=== PATIENT | male | born 1955 | race Caucasian/White ===

== ENCOUNTER 2023-11-18 22:19 | Inpatient (IN) ==
--- NOTE | 2023-11-18 23:44 | Emergency Department Note ---
History of Present Illness General Chief complaint: Infection Stated complaint: INFECTION IN LT EAR/DOWN SIDE OF LT THROAT Time Seen by Provider: 11/18/23 23:29 Source: patient, family ( was at the bedside), RN notes reviewed and old records reviewed (Outpatient labs from from -) Mode of arrival: ambulatory History of Present Illness Maximum Pain Intensity: 5 This patient is a 68-year-old male who comes in with several complaints. When asked what was wrong he says "everything. He was seen Friday for kidney problems he said it was not bad enough to get him admitted he then got an infection of his left external ear he was put on Keflex but is not helping he continues to have pain and swelling there no discharge. No trauma. He is temperature was up to 102.9 axillary this evening. No cough or runny nose he said since he started the Keflex he had a little diarrhea and abdominal discomfort but no severe pain no blood in his stool. He has had some nausea. Decreased appetite he does not believe he is allergic to penicillins Home Medications Medication Instructions Recorded Confirmed Type apixaban 5 mg tablet (Eliquis) 5 mg PO BID 07/21/23 11/19/23 History potassium chloride 10 mEq 10 meq PO DAILY #90 caps 07/30/23 11/19/23 Rx capsule,extended release lisinopril 20 mg tablet 20 mg PO DAILY #90 tabs 08/13/23 11/19/23 Rx diltiazem HCl 180 mg 180 mg PO DAILY #90 caps 10/02/23 11/19/23 Rx capsule,extended release 24 hr cephalexin 500 mg capsule 500 mg PO TID #21 caps 11/17/23 11/19/23 Rx empagliflozin 10 mg tablet 10 mg PO DAILY #30 tabs 11/17/23 11/19/23 Rx (Jardiance) paroxetine HCl 30 mg tablet 30 mg PO DAILY #30 tabs 11/17/23 11/19/23 Rx furosemide 40 mg tablet 40 mg PO DAILY edema 11/19/23 11/19/23 History Allergies Allergy/AdvReac Type Severity Reaction Status Date / Time rosuvastatin [From Crestor] Allergy Intermediate Hives Verified 11/19/23 01:16 Beta-Blockers AdvReac Intermediate Confusion/A Verified 11/19/23 01:16 (Beta-Adrenergic Bloc GITATION ? ABX Allergy Unknown HAPPENED Uncoded 11/19/23 01:16 34 YEARS AGO Past Med/Surg History Problem List (Updated 11/19/23 @ 02:25 by Manoj Partida MD) Elevated troponin I level (Acute) Sepsis (Acute) Current use of manager intermediate anticoagulation (Acute) Otitis externa (Acute) Acute kidney injury (Acute) Anxiety and depression Hypertension Type 2 diabetes mellitus (Acute) Afib (Acute) CAD (coronary artery disease) Medical History History of congestive heart disease IDT (imperfectly descended testis) Surgical History S/P cataract surgery Stented coronary artery 2x Family History Mother Diabetes Heart disease Myocardial infarction Grandfather (Maternal) Diabetes Grandfather (Paternal) Colon cancer Suicide Denies family history of Ovarian cancer Prostate cancer Breast cancer Colorectal cancer Social History Smoking Status: Never smoker Tobacco Type: Cigarettes Age Started Using Tobacco: 17; Age Quit Using Tobacco: 19; Second Hand Exposure: No; Do You Dip or Chew Tobacco: No; Hx Alcohol Use: No Hx Substance Use: No Preferred Language: Gibralt[place] Communication Ability: Effective Visual Impairment: No Limitations Hearing Ability: Normal Transportation Aid Required: No marital status: Current Living Situation: Spouse current occupational status: retired Feels Safe at Home: Yes Childhood Exposure to Second-Hand Smoke: No Diet: regular caffeine: Yes during the past year weight has: decreased > 10 lbs Dental Care, Regularly: No Physical Activity Frequency: Does not Exercise Seatbelt Use: never Sunscreen Use: No Assistive Devices: Glasses Review of Systems A total of 10 systems reviewed and were otherwise negative Physical Exam Vital Signs Vital Signs - 24 hr 11/18/23 22:21 11/18/23 22:42 11/18/23 22:45 Temperature 37.4 C Temperature Source Oral Pulse Rate 109 H 92 H 94 H Pulse Rate from SpO2 Sensor Pulse Rhythm Respiratory Rate 18 31 H Respiratory Effort / Characteristics Non-Labored Spontaneous Respiratory Depth Normal Blood Pressure 163/88 H 157/76 H Blood Pressure Mean 113 103 Pulse Oximetry 96 92 Oxygen Delivery Method Room Air Room Air Sepsis Recent Fever Within 48 Hours Yes Sepsis New/Unexplained Change in Mental Status No Sepsis Action Taken by Nursing No Action Required 11/18/23 22:48 11/18/23 22:48 11/18/23 22:49 Temperature Temperature Source Pulse Rate 98 H Pulse Rate from SpO2 Sensor Pulse Rhythm Respiratory Rate 21 Respiratory Effort / Characteristics Respiratory Depth Blood Pressure 159/82 H 159/82 H 159/82 H Blood Pressure Mean 110 110 107 Pulse Oximetry 97 Oxygen Delivery Method Sepsis Recent Fever Within 48 Hours Sepsis New/Unexplained Change in Mental Status Sepsis Action Taken by Nursing 11/18/23 22:51 11/18/23 23:06 11/18/23 23:15 Temperature Temperature Source Pulse Rate 92 H 89 Pulse Rate from SpO2 Sensor 94 H 93 H Pulse Rhythm Respiratory Rate 26 H Respiratory Effort / Characteristics Respiratory Depth Blood Pressure 164/91 H Blood Pressure Mean 99 Pulse Oximetry 95 92 Oxygen Delivery Method Sepsis Recent Fever Within 48 Hours Sepsis New/Unexplained Change in Mental Status Sepsis Action Taken by Nursing 11/18/23 23:15 11/18/23 23:15 11/18/23 23:30 Temperature Temperature Source Pulse Rate 88 Pulse Rate from SpO2 Sensor 93 H Pulse Rhythm Respiratory Rate 34 H Respiratory Effort / Characteristics Respiratory Depth Blood Pressure 164/91 H 143/79 H Blood Pressure Mean 99 102 Pulse Oximetry 93 Oxygen Delivery Method Sepsis Recent Fever Within 48 Hours Sepsis New/Unexplained Change in Mental Status Sepsis Action Taken by Nursing 11/18/23 23:30 11/18/23 23:30 11/18/23 23:30 Temperature Temperature Source Pulse Rate Pulse Rate from SpO2 Sensor Pulse Rhythm Respiratory Rate Respiratory Effort / Characteristics Respiratory Depth Blood Pressure 143/79 H 143/79 H 143/79 H Blood Pressure Mean 102 102 102 Pulse Oximetry Oxygen Delivery Method Sepsis Recent Fever Within 48 Hours Sepsis New/Unexplained Change in Mental Status Sepsis Action Taken by Nursing 11/18/23 23:33 11/19/23 00:00 11/19/23 00:12 Temperature Temperature Source Pulse Rate 93 H 92 H 90 Pulse Rate from SpO2 Sensor 95 H 91 H 88 Pulse Rhythm Respiratory Rate 33 H 35 H 29 H Respiratory Effort / Characteristics Respiratory Depth Blood Pressure Blood Pressure Mean Pulse Oximetry 96 94 96 Oxygen Delivery Method Sepsis Recent Fever Within 48 Hours Sepsis New/Unexplained Change in Mental Status Sepsis Action Taken by Nursing 11/19/23 00:17 11/19/23 00:17 11/19/23 00:30 Temperature Temperature Source Pulse Rate Pulse Rate from SpO2 Sensor Pulse Rhythm Respiratory Rate Respiratory Effort / Characteristics Respiratory Depth Blood Pressure 149/78 H 149/78 H 140/71 Blood Pressure Mean 111 111 99 Pulse Oximetry Oxygen Delivery Method Sepsis Recent Fever Within 48 Hours Sepsis New/Unexplained Change in Mental Status Sepsis Action Taken by Nursing 11/19/23 00:39 11/19/23 00:42 11/19/23 00:42 Temperature Temperature Source Pulse Rate 96 H 84 83 Pulse Rate from SpO2 Sensor 95 H 85 Pulse Rhythm Regular Respiratory Rate 32 H 34 H 34 H Respiratory Effort / Characteristics Respiratory Depth Blood Pressure Blood Pressure Mean Pulse Oximetry 95 95 94 Oxygen Delivery Method Room Air Sepsis Recent Fever Within 48 Hours Sepsis New/Unexplained Change in Mental Status Sepsis Action Taken by Nursing 11/19/23 00:45 11/19/23 00:54 11/19/23 01:00 Temperature Temperature Source Pulse Rate 82 Pulse Rate from SpO2 Sensor 87 Pulse Rhythm Respiratory Rate 34 H Respiratory Effort / Characteristics Respiratory Depth Blood Pressure 158/73 H 151/77 H Blood Pressure Mean 100 99 Pulse Oximetry 94 Oxygen Delivery Method Sepsis Recent Fever Within 48 Hours Sepsis New/Unexplained Change in Mental Status Sepsis Action Taken by Nursing 11/19/23 01:00 11/19/23 01:00 11/19/23 01:00 Temperature Temperature Source Pulse Rate 84 Pulse Rate from SpO2 Sensor 85 Pulse Rhythm Respiratory Rate 23 Respiratory Effort / Characteristics Respiratory Depth Blood Pressure 151/77 H 151/77 H Blood Pressure Mean 99 99 Pulse Oximetry 95 Oxygen Delivery Method Sepsis Recent Fever Within 48 Hours Sepsis New/Unexplained Change in Mental Status Sepsis Action Taken by Nursing General: Well developed well nourished older male who appears in no acute distress, breathing comfortably on room air. Normal speech HEENT: Normal cephalic atraumatic. Pupils are equal round and reactive to light. Extraocular movements are intact. Oropharynx is pink with moist mucous membranes. No swelling of the mouth lips or tongue. His left pinna is markedly swollen and red is not particularly warm is no fluctuance there is no pus in the canal. Neck: Supple with a midline trachea. No meningeal signs or stiffness, no JVD or bruits. No Stridor. Chest: Clear to auscultation bilaterally. No wheezes or rhonchi. No increased work of breathing. Heart: Regular rate and rhythm without murmurs or gallops. Abdomen: Soft nontender, nondistended without rebound guarding or rigidity. Extremities: No cyanosis clubbing or edema. No calf tenderness or assymetry Spine/Back. Non tender to palpation. No CVA tenderness Skin: Good turgor without rashes. Neurologic exam: Cranial nerves two through 12 are intact. Motor and sensation are intact and symmetrical throughout. Course Administered Medications Daptomycin 350 mg/ Syringe 7 mls @ 3.5 mls/min IV Q24H BLAKE; Protocol Stop: 11/29/23 01:59 Last Admin: 11/19/23 02:16 Dose: 3.5 mls/min Documented By: ROSAMARIA Nitroglycerin (Nitroglycerin 2% Ointment 30gm Tube) 1 inch EXT Q6H BLAKE Stop: 12/19/23 01:59 Last Admin: 11/19/23 02:15 Dose: 1 inch Documented By: ROSAMARIA Discontinued Medications Apixaban (Apixaban 5 Mg Tablet) 5 mg PO NOW STA Stop: 11/19/23 01:34 Last Admin: 11/19/23 02:15 Dose: 5 mg Documented By: ROSAMARIA Aspirin (Aspirin 81 Mg Ectab) 81 mg PO NOW STA Stop: 11/19/23 01:51 Last Admin: 11/19/23 02:15 Dose: 81 mg Documented By: ROSAMARIA Sodium Chloride (Nss) 1,000 mls @ 999 mls/hr IV .Q1H1M BLAKE Stop: 11/19/23 00:45 Last Infusion: 11/19/23 01:58 Dose: Infused Documented By: Admin: 11/19/23 00:16 Dose: 999 mls/hr Documented By: MAYNOR Piperacillin Sod/Tazobactam Sod (Zosyn) 4.5 gm in 100 mls @ 200 mls/hr IV NOW ONE Stop: 11/19/23 00:09 Last Infusion: 11/19/23 01:12 Dose: Infused Documented By: Admin: 11/19/23 00:26 Dose: 200 mls/hr Documented By: MAYNOR Medical Decision Making Differential Diagnosis Otitis externa, malignant otitis externa, renal failure, sepsis, diabetic emergency, cardiac disease, dehydration, electrolyte or metabolic abnormality Medical Records Attestation: I reviewed the patient's medical records. Home Medications Current Medication List: was personally reviewed by me Laboratory Data Attestation: I reviewed the patient's lab results. 11/18/23 22:36 11/18/23 22:36 Lab Results 11/18/23 11/19/23 11/19/23 Range/Units 22:36 00:00 00:32 WBC 12.03 H (4.8-10.8) K/ul RBC 3.91 L (4.70-6.10) M/uL Hgb 12.6 L (14.0-18.0) g/dl Hct 36.5 L (42.0-52.0) % MCV 93.4 (80.0-100.0) fL MCH 32.2 (25.0-34.0) pg MCHC 34.5 (32.0-36.0) g/dL RDW Std Deviation 44.7 (36.4-46.3) fL RDW Coeff of Aayush 13.1 (11.5-14.5) % Plt Count 209 (130-400) K/uL MPV 11.6 (9.4-12.4) fL Immature Gran % (Auto) 0.4 % Neut % (Auto) 78.2 % Lymph % (Auto) 16.1 % [place] % (Auto) 5.0 % Eos % (Auto) 0.1 % Baso % (Auto) 0.2 % Neut # (Auto) 9.40 H (1.40-6.50) K/uL Lymph # (Auto) 1.94 (1.20-3.40) K/uL [place] # (Auto) 0.60 H (0.11-0.59) K/uL Eos # (Auto) 0.01 (0.00-0.50) K/uL Baso # (Auto) 0.03 (0.00-0.20) K/uL Immature Gran # (Auto) 0.05 (0.01-0.20) K/uL Sodium 130 L (136-145) mmol/L Potassium 4.2 (3.5-5.1) mmol/L Chloride 97 L (98-107) mmol/L Carbon Dioxide 24 (21-32) mmol/L Anion Gap 9 (3-11) BUN 30 H (6-23) mg/dl Creatinine 1.99 H (0.6-1.4) mg/dl Est Cr Clr Drug Dosing 43.6 ml/min Est GFR ( Amer) 38.6 ml/min Est GFR (Non-Af Amer) 33.3 ml/min BUN/Creatinine Ratio 15.1 (10-20) Glucose 133 H (70-99(Fasting)) mg/dl Lactate 1.5 (0.4-2.0) mmol/L Calcium 9.2 (8.6-10.3) mg/dl Magnesium 1.9 (1.7-2.4) mg/dl Total Bilirubin 0.9 (0.2-1.0) mg/dl Direct Bilirubin 0.1 (0-0.2) mg/dl AST 26 (13-39) U/L ALT 16 (7-52) U/L Alkaline Phosphatase 57 (34-104) U/L Troponin I High Sens 43.9 H (0-20) pg/ml Total Protein 8.3 (6.0-8.3) gm/dl Albumin 3.6 (3.4-5.0) gm/dl Procalcitonin 4.12 H (0-0.5) ng/ml Urine Color Yellow Urine Appearance Clear (Clear) Urine pH 5.5 (4.5-7.5) Ur Specific Bulger 1.019 (1.000-1.030) Urine Protein 2+ H (Negative) Urine Glucose (UA) Negative (Negative) Urine Ketones 1+ H (Negative) Urine Blood Trace H (Negative) Urine Nitrite Negative (Negative) Urine Bilirubin Negative (Negative) Urine Urobilinogen Negative (Negative) Ur Leukocyte Esterase Negative (Negative) Urine WBC (Auto) 0-5 (0-5) /hpf Urine RBC (Auto) 0-2 (0-2) /hpf U Hyaline Cast (Auto) 0-2 (0-2) /lpf U Epithel Cells (Auto) 0-2 (0-2) /hpf Urine Bacteria (Auto) None Seen (None Seen) Imaging Data Attestation: I personally reviewed and interpreted this imaging study as follows: My Impression: Chest x-ray ECG Data Attestation: I personally reviewed and interpreted this ECG as follows: Indication: + weakness Rate (beats per minute): 87 Rhythm: + atrial fibrillation ECG Intervals/blocks: + Right Bundle branch block and + Normal QT ECG [place]: + Normal ECG ST segments: + Normal ST segments ECG Findings: no PACs or no PVCs Comparison ECG Date: from (11/21/22) Change: the following changes noted (Right bundle branch block is now present) MDM Narrative This patient comes in as described above. He was placed in room B2. He is here for treatment and evaluation of a swollen ear he is also had a fever he has not felt well in general and has had renal insufficiency lately. I am worried his kidney function may be worse because he tells me has not been able to eat or drink much over the last couple days because he has been ill. His initial vital signs are stable. I did a full sepsis type workup. I did talk to him at length about his antibiotic history he think he is okay with penicillins I did order IV Zosyn for broad-spectrum antibiotic after blood cultures and lactic acid were ordered among other medications . he was given a 500 cc normal saline IV bolus. EKG and chest x-ray were obtained. He is on Eliquis. His troponin was mildly elevated and I asked him if he was having chest pain he said he did earlier and has been off and on for quite some time none at present. He has renal insufficiency. He did tolerate the IV antibiotic well. I do think he needs to be admitted/observed for infection/sepsis and elevated troponin and renal insufficiency. I have discussed the case at length in consultation with Dr. Wilde who saw the patient ER and will admit him for these measures Continuous cardiac monitoring: Orders placed in EMR for continuous garden consultant call upon my evaluation patient was noted to be atrial fibrillation with a rate controlled rate of 85 Impression & Plan Sepsis, Acute kidney injury, Afib, Type 2 diabetes mellitus, Otitis externa, Current use of mcfp anticoagulation, Elevated troponin I level Discharge Plan Visit Data Chief Complaint: Infection Stated Complaint: INFECTION IN LT EAR/DOWN SIDE OF LT THROAT ED Provider: Manoj Partida Discharge Problem: Sepsis, Acute kidney injury, Afib, Type 2 diabetes mellitus, Otitis externa, Current use of mcfp anticoagulation, Elevated troponin I level Forms Stand Alone Forms: My [facility] Prescriptions Prescriptions: No Action potassium chloride 10 mEq capsule, extended release 10 meq PO DAILY Qty: 90 3RF lisinopril 20 mg tablet 20 mg PO DAILY Qty: 90 1RF diltiazem HCl 180 mg capsule,extended release 24hr 180 mg PO DAILY Qty: 90 1RF Eliquis 5 mg tablet 5 mg PO BID Jardiance 10 mg tablet 10 mg PO DAILY Qty: 30 2RF cephalexin 500 mg capsule 500 mg PO TID Qty: 21 0RF Rx Instructions: STARTED 11/17/23 FOR 7 DAYS paroxetine HCl 30 mg tablet 30 mg PO DAILY Qty: 30 3RF furosemide 40 mg tablet 40 mg PO DAILY Referrals Referrals: Edward Rojas DO [Primary Care Provider] - Discharge Problem: Sepsis Qualifiers: Sepsis type: sepsis due to unspecified organism Sepsis acute organ dysfunction status: unspecified Qualified Code(s): A41.9 - Sepsis, unspecified organism Afib Qualifiers: Atrial fibrillation type: longstanding persistent Qualified Code(s): I48.11 - Longstanding persistent atrial fibrillation Type 2 diabetes mellitus Qualifiers: Diabetes mellitus manager intermediate insulin use: without manager intermediate use Diabetes mellitus complication status: without complication Qualified Code(s): E11.9 - Type 2 diabetes mellitus without complications Otitis externa Qualifiers: Otitis externa type: malignant Chronicity: acute Laterality: left Qualified Code(s): H60.22 - Malignant otitis externa, left ear
[2023-11-19] MEDS: SODIUM CHLORIDE 0.9% 1,000 ML IV SCH ×2 (00:16→03:30)
[2023-11-19 00:25] LABS: Appearance Urine Clear (Clear); Bacteria Urine Automated None Seen (None Seen); Bilirubin Urine Negative (Negative); Blood Urine Trace (Negative); Cast Urine Automated 0-2 /lpf (0-2); Color Urine Yellow; Epithelial Cell Urine Auto 0-2 /hpf (0-2); Glucose Urine UA Negative (Negative); Ketones Urine 1+ (Negative); Leukocyte Esterase Urine Negative (Negative); Nitrite Urine Negative (Negative); Protein Urine 2+ (Negative); RBC Urine Automated 0-2 /hpf (0-2); Specific Gravity Urine 1.019 (1.000-1.030); Urobilinogen Urine Negative (Negative); WBC Urine Automated 0-5 /hpf (0-5); pH Urine 5.5 (4.5-7.5)
[2023-11-19] MEDS: PIPERACILLIN/TAZOBACTAM 4.5 GM/100 ML BAG IV ONE (00:26)
[2023-11-19 00:29] LABS: Basophils # (auto) 0.03 K/uL (0.00-0.20); Basophils % (auto) 0.2 %; Eosinophils # (auto) 0.01 K/uL (0.00-0.50); Eosinophils % (auto) 0.1 %; Hematocrit (blood only) 36.5 % (42.0-52.0); Hemoglobin 12.6 g/dl (14.0-18.0); Immature Granulocytes # (auto) 0.05 K/uL (0.01-0.20); Immature Granulocytes % (auto) 0.4 %; Lymphocytes # (auto) 1.94 K/uL (1.20-3.40); Lymphocytes % (auto) 16.1 %; Mean Corpuscular Hemoglobin 32.2 pg (25.0-34.0); Mean Corpuscular Hgb Conc 34.5 g/dL (32.0-36.0); Mean Corpuscular Volume 93.4 fL (80.0-100.0); Mean Platelet Volume 11.6 fL (9.4-12.4); Neutrophils % (auto) 78.2 %; Platelet Count 209 K/uL (130-400); RDW Coefficient of Variation 13.1 % (11.5-14.5); RDW Standard Deviation 44.7 fL (36.4-46.3); Red Blood Count 3.91 M/uL (4.70-6.10); White Blood Count 12.03 K/ul (4.8-10.8)
[2023-11-19 00:30] LABS: Albumin Level 3.6 gm/dl (3.4-5.0); BUN Creatinine Ratio 15.1 (10-20); Bilirubin Direct 0.1 mg/dl (0-0.2); Bilirubin,Total 0.9 mg/dl (0.2-1.0); Calcium 9.2 mg/dl (8.6-10.3); Creatinine Clr Calc Pharmacy 43.6 ml/min; Est GFR (African American) 38.6 ml/min; Est GFR (Non-African American) 33.3 ml/min; Magnesium 1.9 mg/dl (1.7-2.4); Potassium 4.2 mmol/L (3.5-5.1); Total Protein 8.3 gm/dl (6.0-8.3)
[2023-11-19 00:37] LABS: Troponin I High Sensitivity 43.9 pg/ml (0-20)
--- NOTE | 2023-11-19 02:00 | History & Physical Report ---
Date of Service November 19, 2023 Assessment & Plan (1) NSTEMI (non-ST elevated myocardial infarction): (2) Current use of bed bug exterminator anticoagulation: (3) Cellulitis of face: (4) Cellulitis of neck: (5) Infection of ear, external, left: (6) Type 2 diabetes mellitus: (7) Hypertension: (8) Anxiety and depression: (9) Acute kidney injury: (10) Otitis externa: Plan Infection of left external ear/otitis externa/cellulitis of face and neck- Daptomycin 4 mg/kg IV every 24 hours Zosyn 4.5 g IV every [address] scans of facial bones, soft tissue neck to assess for drainable fluid collection NSTEMI/atrial fibrillation/CAD/hypertension- The patient will be admitted to telemetry for serial cardiac enzymes, serial EKG's, cardiac rhythm monitoring and a 2-D echocardiogram with Dopplers. Last echocardiogram on 12/26/2021 with ejection fraction 57% Continue apixaban, diltiazem Initial troponin 43.9, with follow-up 42.3 EKG with atrial fibrillation at 87, with new right bundle branch block and ST depressions V4 through V6 Placed on Nitropaste 1 inch to anterior chest wall every 6 hours Acute kidney injury- Creatinine 1.99 on admission, with base 1.12 Hold empagliflozin, furosemide and lisinopril Status post 1 L normal saline bolus in the ED NSS at 80 mL/h x 1 L Repeat laboratories in a.m. Diabetes mellitus- Patient has been on multi medications in the past, including glimepiride, which had been discontinued by his PCP More recently has been on empagliflozin, which will be held Entrance blood sugar 133 Placed on Accu-Cheks with NovoLog SSI History of Present Illness Chief Complaint: The patient presents to the emergency department due to concerns regarding a worsening infection of his external left ear, extending down the left side of his neck. He also reports intermittent chest discomfort over the past 2 weeks primarily with activity Primary Care Provider: Edward Rojas DO The patient is a 68-year-old male with a past medical history including CAD, atrial fibrillation, diabetes mellitus type 2, hypertension, anxiety and depression, on long-term anticoagulation with apixaban. He presents to the e mergency department with concerns regarding a worsening left ear infection, with increasing redness, swelling and pain of the external ear, causing some muffling of his sounds on that side, and infection extending down his neck. Patient also notes intermittent precordial chest pain over the past 2 weeks lasting a few minutes at a time Allergies Allergy/AdvReac Type Severity Reaction Status Date / Time rosuvastatin [From Crestor] Allergy Intermediate Hives Verified 11/19/23 01:16 Beta-Blockers AdvReac Intermediate Confusion/A Verified 11/19/23 01:16 (Beta-Adrenergic Bloc GITATION ? ABX Allergy Unknown HAPPENED Uncoded 11/19/23 01:16 34 YEARS AGO Home Medications Medication Instructions Recorded Confirmed Type apixaban 5 mg tablet (Eliquis) 5 mg PO BID 07/21/23 11/19/23 History potassium chloride 10 mEq 10 meq PO DAILY #90 caps 07/30/23 11/19/23 Rx capsule,extended release lisinopril 20 mg tablet 20 mg PO DAILY #90 tabs 08/13/23 11/19/23 Rx diltiazem HCl 180 mg 180 mg PO DAILY #90 caps 10/02/23 11/19/23 Rx capsule,extended release 24 hr cephalexin 500 mg capsule 500 mg PO TID #21 caps 11/17/23 11/19/23 Rx empagliflozin 10 mg tablet 10 mg PO DAILY #30 tabs 11/17/23 11/19/23 Rx (Jardiance) paroxetine HCl 30 mg tablet 30 mg PO DAILY #30 tabs 11/17/23 11/19/23 Rx furosemide 40 mg tablet 40 mg PO DAILY edema 11/19/23 11/19/23 History Past Med/Surg History Problem List (Updated 11/19/23 @ 03:59 by Jarad Lopez MD) Infection of ear, external, left Cellulitis of neck Cellulitis of face NSTEMI (non-ST elevated myocardial infarction) Elevated troponin I level (Acute) Sepsis (Acute) Current use of bed bug exterminator anticoagulation (Acute) Otitis externa (Acute) Acute kidney injury (Acute) Anxiety and depression Hypertension Type 2 diabetes mellitus (Acute) Afib (Acute) CAD (coronary artery disease) Medical History History of congestive heart disease IDT (imperfectly descended testis) Surgical History S/P cataract surgery Stented coronary artery 2x Family History Mother Diabetes Heart disease Myocardial infarction Grandfather (Maternal) Diabetes Grandfather (Paternal) Colon cancer Suicide Denies family history of Ovarian cancer Prostate cancer Breast cancer Colorectal cancer Social History Smoking Status: Never smoker Tobacco Type: Cigarettes Age Started Using Tobacco: 17; Age Quit Using Tobacco: 19; Second Hand Exposure: No; Do You Dip or Chew Tobacco: No; Hx Alcohol Use: No Hx Substance Use: No Preferred Language: Venezuelan Communication Ability: Effective Visual Impairment: No Limitations Hearing Ability: Normal Returns Clerk Required: No marital status: Current Living Situation: Spouse current occupational status: retired Feels Safe at Home: Yes Childhood Exposure to Second-Hand Smoke: No Diet: regular caffeine: Yes during the past year weight has: decreased > 10 lbs Dental Care, Regularly: No Physical Activity Frequency: Does not Exercise Seatbelt Use: never Sunscreen Use: No Assistive Devices: Glasses Review of Systems Review of Systems: The patient denies palpitations, shortness of breath, dyspnea on exertion, cough, lower extremity swelling, sore throat, fevers, chills, sweats, fatigue, nausea, vomiting, diarrhea , constipation, abdominal pain, pelvic pain, blood in urine or stool, dysuria, urinary frequency or urgency, lightheadedness, dizziness, headache, memory loss, loss of consciousness, imbalance, focal or generalized weakness, numbness or tingling in arms or legs, generalized arthralgias or myalgias, back or neck pain, or night sweats. The review of systems is otherwise negative other than for that already noted above, and at least 10 systems have been reviewed. Physical Exam Physical Exam: The patient is awake, alert and oriented 3, well developed and well nourished, normocephalic and atraumatic, lying in bed and in no acute distress. HEENT--PERRL, EOMI, mucous membranes and oropharynx mildly dry. Left ear external ear with moderately severe erythema and swelling, with extension to base of neck Neck--mildly restricted due to soft tissue swelling left side of neck. No JVD. No bruits. Thyroid normal, trachea midline, no adenopathy. Heart--normal S1 and S2. No murmurs, rubs or gallops. Lungs--clear bilaterally, no respiratory distress, no accessory muscle use. Abdomen--normal bowel sounds and soft. Nontender. Nondistended. Obese Extremities--No edema. Dermatologic--normal except for left ear and left side of neck as noted Neurologic--cranial nerves II through XII grossly intact. Rheumatologic--normal except for neck due to soft tissue swelling as noted Psychiatric--normal affect. Results & Data Results & Data Vital Signs (Past 12 Hours) Vital Signs Temp Pulse Resp BP Pulse Ox O2 Del Method 11/19/23 01:00 84 23 95 11/19/23 01:00 151/77 H 11/19/23 01:00 151/77 H 11/19/23 01:00 151/77 H 11/19/23 00:54 82 34 H 94 11/19/23 00:45 158/73 H 11/19/23 00:42 83 34 H 94 11/19/23 00:42 84 34 H 95 Room Air 11/19/23 00:39 96 H 32 H 95 11/19/23 00:30 140/71 11/19/23 00:17 149/78 H 11/19/23 00:17 149/78 H 11/19/23 00:12 90 29 H 96 11/19/23 00:00 92 H 35 H 94 11/18/23 23:33 93 H 33 H 96 11/18/23 23:30 143/79 H 11/18/23 23:30 143/79 H 11/18/23 23:30 143/79 H 11/18/23 23:30 143/79 H 11/18/23 23:15 88 34 H 93 11/18/23 23:15 164/91 H 11/18/23 23:15 164/91 H 11/18/23 23:06 89 92 11/18/23 22:51 92 H 26 H 95 11/18/23 22:49 98 H 21 159/82 H 97 11/18/23 22:48 159/82 H 11/18/23 22:48 159/82 H 11/18/23 22:45 94 H 11/18/23 22:42 92 H 31 H 157/76 H 92 Room Air 11/18/23 22:21 37.4 C 109 H 18 163/88 H 96 Room Air Laboratory Results Laboratory Results WBC 12.03 K/ul (4.8-10.8) H 11/18/23 22:36 RBC 3.91 M/uL (4.70-6.10) L 11/18/23 22:36 Hgb 12.6 g/dl (14.0-18.0) L 11/18/23 22:36 Hct 36.5 % (42.0-52.0) L 11/18/23 22:36 MCV 93.4 fL (80.0-100.0) 11/18/23 22:36 MCH 32.2 pg (25.0-34.0) 11/18/23 22:36 MCHC 34.5 g/dL (32.0-36.0) 11/18/23 22:36 RDW Std Deviation 44.7 fL (36.4-46.3) 11/18/23 22:36 RDW Coeff of Aayush 13.1 % (11.5-14.5) 11/18/23 22:36 Plt Count 209 K/uL (130-400) 11/18/23 22:36 MPV 11.6 fL (9.4-12.4) 11/18/23 22:36 Immature Gran % (Auto) 0.4 % 11/18/23 22:36 Neut % (Auto) 78.2 % 11/18/23 22:36 Lymph % (Auto) 16.1 % 11/18/23 22:36 [place] % (Auto) 5.0 % 11/18/23 22:36 Eos % (Auto) 0.1 % 11/18/23 22:36 Baso % (Auto) 0.2 % 11/18/23 22:36 Neut # (Auto) 9.40 K/uL (1.40-6.50) H 11/18/23 22:36 Lymph # (Auto) 1.94 K/uL (1.20-3.40) 11/18/23 22:36 [place] # (Auto) 0.60 K/uL (0.11-0.59) H 11/18/23 22:36 Eos # (Auto) 0.01 K/uL (0.00-0.50) 11/18/23 22:36 Baso # (Auto) 0.03 K/uL (0.00-0.20) 11/18/23 22:36 Immature Gran # (Auto) 0.05 K/uL (0.01-0.20) 11/18/23 22:36 Sodium 130 mmol/L (136-145) L 11/18/23 22:36 Potassium 4.2 mmol/L (3.5-5.1) 11/18/23 22:36 Chloride 97 mmol/L (98-107) L 11/18/23 22:36 Carbon Dioxide 24 mmol/L (21-32) 11/18/23 22:36 Anion Gap 9 (3-11) 11/18/23 22:36 BUN 30 mg/dl (6-23) H 11/18/23 22:36 Creatinine 1.99 mg/dl (0.6-1.4) H 11/18/23 22:36 Est Cr Clr Drug Dosing 43.6 ml/min 11/18/23 22:36 Est GFR ( Amer) 38.6 ml/min 11/18/23 22:36 Est GFR (Non-Af Amer) 33.3 ml/min 11/18/23 22:36 BUN/Creatinine Ratio 15.1 (10-20) 11/18/23 22:36 Glucose 133 mg/dl (70-99(Fasting)) H 11/18/23 22:36 Lactate 1.5 mmol/L (0.4-2.0) 11/19/23 00:32 Calcium 9.2 mg/dl (8.6-10.3) 11/18/23 22:36 Magnesium 1.9 mg/dl (1.7-2.4) 11/18/23 22:36 Total Bilirubin 0.9 mg/dl (0.2-1.0) 11/18/23 22:36 Direct Bilirubin 0.1 mg/dl (0-0.2) 11/18/23 22:36 AST 26 U/L (13-39) 11/18/23 22:36 ALT 16 U/L (7-52) 11/18/23 22:36 Alkaline Phosphatase 57 U/L (34-104) 11/18/23 22:36 Troponin I High Sens 42.3 pg/ml (0-20) H 11/19/23 02:17 Total Protein 8.3 gm/dl (6.0-8.3) 11/18/23 22:36 Albumin 3.6 gm/dl (3.4-5.0) 11/18/23 22:36 Procalcitonin 4.12 ng/ml (0-0.5) H 11/18/23 22:36 Urine Color Yellow 11/19/23 00:00 Urine Appearance Clear (Clear) 11/19/23 00:00 Urine pH 5.5 (4.5-7.5) 11/19/23 00:00 Ur Specific [place] 1.019 (1.000-1.030) 11/19/23 00:00 Urine Protein 2+ (Negative) H 11/19/23 00:00 Urine Glucose (UA) Negative (Negative) 11/19/23 00:00 Urine Ketones 1+ (Negative) H 11/19/23 00:00 Urine Blood Trace (Negative) H 11/19/23 00:00 Urine Nitrite Negative (Negative) 11/19/23 00:00 Urine Bilirubin Negative (Negative) 11/19/23 00:00 Urine Urobilinogen Negative (Negative) 11/19/23 00:00 Ur Leukocyte Esterase Negative (Negative) 11/19/23 00:00 Urine WBC (Auto) 0-5 /hpf (0-5) 11/19/23 00:00 Urine RBC (Auto) 0-2 /hpf (0-2) 11/19/23 00:00 U Hyaline Cast (Auto) 0-2 /lpf (0-2) 11/19/23 00:00 U Epithel Cells (Auto) 0-2 /hpf (0-2) 11/19/23 00:00 Urine Bacteria (Auto) None Seen (None Seen) 11/19/23 00:00 Code Status & VTE Plan Code Status Full code VTE Prophylaxis Plan VTE Prophylaxis will be ordered: Yes PG Care Time/CCT Total # of Minutes Spent Total Time Spent with Patient: Total time spent is greater than 50% in coordination of care (as documented) at patient's floor/unit and/or counseling patient: Coding Level of Care Code 84145 INT INP/OBS CARE 3/75MIN Diagnoses NSTEMI (non-ST elevated myocardial infarction) I21.4 Current use of bed bug exterminator anticoagulation Z79.01 Cellulitis of face L03.211 Cellulitis of neck L03.221 Infection of ear, external, left H60.392 Type 2 diabetes mellitus E11.9 Diabetes mellitus complication status: without complication Diabetes mellitus fci insulin use: without fci use Hypertension I10 Anxiety and depression F41.9; F32.A Acute kidney injury N17.9 Otitis externa H60.22 Chronicity: acute Laterality: left Otitis externa type: malignant (6) Type 2 diabetes mellitus Diabetes mellitus complication status: without complication Diabetes mellitus bed bug exterminator insulin use: without fci use Qualified Code(s): E11.9 - Type 2 diabetes mellitus without complications (10) Otitis externa Chronicity: acute Laterality: left Otitis externa type: malignant Qualified Code(s): H60.22 - Malignant otitis externa, left ear
[2023-11-19] MEDS: ASPIRIN 81 MG ECTAB PO STA (02:15)
[2023-11-19] MEDS: NITROGLYCERIN 2% OINTMENT 30GM TUBE EXT SCH (02:15)
[2023-11-19] MEDS: APIXABAN 5 MG TABLET PO STA (02:15)
[2023-11-19] MEDS: DAPTOmycin 350 MG in SYRINGE 0 ML IV SCH (02:16)
[2023-11-19] MEDS ORDERED: GLUCAGON FOR INJ 1 MG VIAL SQ PRN (03:26)
[2023-11-19] MEDS ORDERED: CARBOHYDRATES FOR HYPOGLYCEMIA PO PRN (03:26)
[2023-11-19] MEDS ORDERED: GLUCOSE 10 TAB/TUBE PO PRN (03:26)
[2023-11-19] MEDS ORDERED: NITROGLYCERIN SL 0.4 MG/TAB TAB SL PRN (03:26)
[2023-11-19] MEDS ORDERED: GLUCOSE 40% GEL 15 GM TUBE PO PRN (03:26)
[2023-11-19] MEDS ORDERED: DEXTROSE 50% 50 ML SYRINGE IV PRN (03:26)
[2023-11-19] MEDS: PIPERACILLIN/TAZOBACTAM 4.5 GM in DEXTROSE 5% MINI-B 100 ML IV SCH (06:09)
[2023-11-19 07:09] LABS: Estimated Average Glucose 157 mg/dl; Hemoglobin A1C 7.1 % (4.5-5.6)
--- NOTE | 2023-11-19 07:10 | XRay Report ---
SINGLE VIEW CHEST CLINICAL HISTORY: Sepsis. FINDINGS: 2 AP, portable, upright chest radiographs are obtained. No prior studies are available for comparison at the time of dictation. The examination is mildly degraded by portable technique and pat ient rotation. The heart is enlarged noting atherosclerotic calcification of the thoracic aorta. The pulmonary vasculature is not congested. There is mild elevation of right hemidiaphragm. Atelectasis is seen at the lung bases. No airspace consolidation or large pleural effusion is identified. No pneu mothorax is seen. The bony thorax is grossly intact. Arthritic change is noted in the shoulders. IMPRESSION: Cardiomegaly with no acute cardiopulmonary abnormality identified. ACT 112: Negative or not required by law. Electronically signed by: Karan Hargrove M.D. 11/19/2023 7:09 AM
--- NOTE | 2023-11-19 07:34 | Hospitalist Progress Note ---
Date of Service November 19, 2023 Assessment & Plan (1) NSTEMI (non-ST elevated myocardial infarction): (2) Current use of ferry terminal agent anticoagulation: (3) Cellulitis of face: (4) Cellulitis of neck: (5) Infection of ear, external, left: (6) Type 2 diabetes mellitus: (7) Hypertension: (8) Anxiety and depression: (9) Acute kidney injury: (10) Otitis externa: Plan Infection of left external ear/otitis externa/cellulitis of face and neck- - Daptomycin 4 mg/kg IV every 24 hours - Zosyn 4.5 g IV every 8 hours - CT of face and neck negative for drainable fluid collection Atrial fibrillation/CAD/hypertension- - The patient will be admitted to telemetry for serial cardiac enzymes, serial EKG's, cardiac rhythm monitoring and a 2-D echocardiogram with Dopplers. - Last echocardiogram on 12/26/2021 with ejection fraction 57%. - Continue apixaban 5 mg BID. - Initial troponin 43.9, with follow-up 42.3. EKG with atrial fibrillation at 87, with new right bundle branch block and ST depressions V4 through V6. Cardiology consulted. Not considered to be an acute coronary event at this time. - Start aspirin 81 mg daily. - Hives with statins in the past, PCSK9 inhibitor recommended. - John reports that he is not sure whether his "Allergy" to beta blockers was a true allergic reaction. Discussed the risks and benefits for trialing beta blockers at this time, he is agreeable to starting a beta jesus. Metoprolol succinate 100 mg this afternoon, monitor heart rate and blood pressure. - Oral Isosorbide Mononitrate ER 30 mg daily to lessen his chronic stable angina pectoris if blood pressure allows. Acute kidney injury- - Creatinine 1.87 today, with base 1.12 - Hold empagliflozin, furosemide and lisinopril - LR at 100 mL/h Diabetes mellitus- - Patient has been on multi medications in the past, including glimepiride, which had been discontinued by his PCP - More recently has been on empagliflozin, hold - Accu-Cheks with NovoLog SSI Admission and Anticipated Discharge Date Admission Date: November 19, 2023 Supervising Physician Co-Signing Physician Notes I personally examined the patient and verified all [place] points of history and exam, discussed case, and agree with decision making with Dr Anthony Ortiz and Haylee Ko MS4 Feeling okay overall. Left side of head hurts a little bit more than yesterday ear about the same as last few days. No fevers chills or sweats since admission. Vitals noted, in general he is awake and alert pleasant no distress. HEENT normocephalic atraumatic mucous membranes moist. Left ear is largely erythematous moderately tender no open lesions no ulcerations no areas of necrosis. Mild area of surrounding erythema on his scalp, no dense fluctuance. Tender in the region of his left cervical anterior lymph nodes, although I cannot discretely appreciate adenopathysame with his left supraclavicular fossa. Left ear cellulitis with sepsis present on admissionwith spread to scalp. Most likely would be resistant gram-positive organisms given that he was on cephalexin but failed. Definitely continue daptomycin. Understand concern about malignant otitis externaafter further review I suspect this is much more consistent with a regular skin and soft tissue infection that was just resistant to initial treatmentbut while his situation is still unfolding we will continue Zosyn to cover for gram-negative organisms at least another 24 hours. Similarlyserial exams as it is also concerning about more of a toxin mediated process such as a spider bitealthough with no discrete areas of necrosis this is seeming less likely AKIfractional excretion of sodium in the ER over the weekend was consistent with prerenal, his improvement with IV fluids is also consistent with prerenal. Obviously with his age and gender considered obstructive uropathy, but with his creatinine improving with fluids we will hold off on renal imaging for nowobviously that would be the next step should there be any worsening worry stalled out and improvement. Continue fluids. Holding off on Lasix indefinitely. Temporarily holding off on YEISON inhibitor coronary disease with anginaseems to be chronicafter further review his troponins are probably more consistent with angina and may be mild demand ischemia rather than a true NSTEMImed management. After discussion, he agrees to give retrial to a beta-jesus relating that his listed side effect was a long time ago and he believes to be circumstantial more than purely medication relatedI concur. Will hold his diltiazem and give trial 200 mg of metoprolol succinate and follow. A-fibmed changes as above. Anticoagulated anticoagulated for DVT prophylaxis otherwise as above Subjective John is feeling well this morning. He is still experiencing ear pain and right sided facial pain. He denies chest pain and shortness of breath, but this pain is worse with exercise. Is also experiencing stomach pain. No diarrhea or vomiting. Review of Systems Review of Systems: see HPI Physical Exam Physical Exam: The patient is awake, alert and oriented 3, well developed and well nourished, normocephalic and atraumatic, lying in bed and in no acute distress. HEENT--PERRL, EOMI, mucous membranes and oropharynx mildly dry. Left ear external ear with moderately severe erythema and swelling, with extension to base of neck. Tender to palpation to the left face. Neck--mildly restricted due to soft tissue swelling left side of neck. No JVD. No bruits. Thyroid normal, trachea midline, no adenopathy. Heart--normal S1 and S2. No murmurs, rubs or gallops. Lungs--clear bilaterally, no respiratory distress, no accessory muscle use. Abdomen--normal bowel sounds and soft. Nontender. Nondistended. Obese Extremities--No edema. Dermatologic--normal except for left ear and left side of neck as noted Neurologic--cranial nerves II through XII grossly intact. Rheumatologic--normal except for neck due to soft tissue swelling as noted Psychiatric--normal affect. Results & Data Results & Data Vital Signs (Past 12 Hours) Vital Signs Temp Pulse Pulse Resp BP BP Pulse Ox 11/19/23 03:06 84 11/19/23 03:00 36.8 C 84 20 148/74 H 96 11/19/23 02:36 76 11/19/23 02:30 85 17 112/70 90 11/19/23 02:24 132/73 11/19/23 01:46 162/90 H 11/19/23 01:30 91 H 24 150/94 H 92 11/19/23 01:00 84 23 95 11/19/23 01:00 151/77 H 11/19/23 01:00 151/77 H 11/19/23 01:00 151/77 H 11/19/23 00:54 82 34 H 94 11/19/23 00:45 158/73 H 11/19/23 00:42 83 34 H 94 11/19/23 00:42 84 34 H 95 11/19/23 00:39 96 H 32 H 95 11/19/23 00:30 140/71 11/19/23 00:17 149/78 H 11/19/23 00:17 149/78 H 11/19/23 00:12 90 29 H 96 11/19/23 00:00 92 H 35 H 94 11/18/23 23:33 93 H 33 H 96 11/18/23 23:30 143/79 H 11/18/23 23:30 143/79 H 11/18/23 23:30 143/79 H 11/18/23 23:30 143/79 H 11/18/23 23:15 88 34 H 93 11/18/23 23:15 164/91 H 11/18/23 23:15 164/91 H 11/18/23 23:06 89 92 11/18/23 22:51 92 H 26 H 95 11/18/23 22:49 98 H 21 159/82 H 97 11/18/23 22:48 159/82 H 11/18/23 22:48 159/82 H 11/18/23 22:45 94 H 11/18/23 22:42 92 H 31 H 157/76 H 92 11/18/23 22:21 37.4 C 109 H 18 163/88 H 96 O2 Del Method 11/19/23 03:06 11/19/23 03:00 Room Air 11/19/23 02:36 11/19/23 02:30 11/19/23 02:24 11/19/23 01:46 11/19/23 01:30 11/19/23 01:00 11/19/23 01:00 11/19/23 01:00 11/19/23 01:00 11/19/23 00:54 11/19/23 00:45 11/19/23 00:42 11/19/23 00:42 Room Air 11/19/23 00:39 11/19/23 00:30 11/19/23 00:17 11/19/23 00:17 11/19/23 00:12 11/19/23 00:00 11/18/23 23:33 11/18/23 23:30 11/18/23 23:30 11/18/23 23:30 11/18/23 23:30 11/18/23 23:15 11/18/23 23:15 11/18/23 23:15 11/18/23 23:06 11/18/23 22:51 11/18/23 22:49 11/18/23 22:48 11/18/23 22:48 11/18/23 22:45 11/18/23 22:42 Room Air 11/18/23 22:21 Room Air Resident Activity Tracking Resident Involvement: Resident Care Provided Care Provided: Adult Hospital Medicine Resident Supervision Co-Signing Physician Notes Patient seen and examined with Malka Romeo MS4. Agree with documented findings as noted with any exception noted here Cellulitis left ear - CT head with no abscess. Will continue Broad spectrum cover for now. Erythematous JENARO- Pre renal, Will continue gentle IV Lactate ringer 100 ml/hr. BMP am Chest pain/Chronic Angina / CAD/ HTN/ [place] fibrillation - No acute coronary syndrome. Troponin decreasing in trend. Cardiology consulted, aprec recommendations. Imdur added for tomorrow am. holding lisinopril now due to JENARO, will restart when JENARO resolved. Will add a beta jesus, metoprolol 100 mg daily added today. (6) Type 2 diabetes mellitus Diabetes mellitus complication status: without complication Diabetes mellitus ferry terminal agent insulin use: without snf use Qualified Code(s): E11.9 - Type 2 diabetes mellitus without complications (10) Otitis externa Chronicity: acute Laterality: left Otitis externa type: malignant Qualified Code(s): H60.22 - Malignant otitis externa, left ear
[2023-11-19] MEDS: PARoxetine HCL 20 MG TAB PO SCH (08:12)
[2023-11-19] MEDS: APIXABAN 5 MG TABLET PO SCH (08:12)
[2023-11-19] MEDS: dilTIAZem HCL 180 MG CAPCR PO SCH (08:12)
[2023-11-19] MEDS: INSULIN ASPART PER UNIT CHARGE SC SCH (08:34)
[2023-11-19 08:54] LABS: Calcium 8.5 mg/dl (8.6-10.3); Creatinine Clr Calc Pharmacy 46.9 ml/min; Est GFR (African American) 41.6 ml/min; Est GFR (Non-African American) 35.9 ml/min; Potassium 3.6 mmol/L (3.5-5.1)
[2023-11-19 09:00] LABS: Troponin I High Sensitivity 36.2 pg/ml (0-20)
--- NOTE | 2023-11-19 09:12 | Cardiology Consultation ---
Date of Consultation November 19, 2023 Assessment & Plan (1) Infection of ear, external, left: (2) Cellulitis of face: (3) Elevated troponin I level: (4) CAD (coronary artery disease): Mr. Poon is a 68 year old male with a history of Hypertension, Dyslipidemia, Type 2 Diabetes Mellitus, Permanent Atrial Fibrillation, Anxiety, Depression, JUNIOR, Asthma, and CAD s/p LAD BMS 12/2010 with Chronic Stable Angina Pectoris who was admitted yesterday with Left Otitis Externa/Cellulitis of his face and neck. He describes a worsening left ear infection, with increasing redness, swelling and pain of the external ear, causing some muffling of his sounds on that side, and infection extending down his neck. Patient also notes intermittent precordial chest pain over the past 2 weeks lasting a few minutes at a time -- but when I ask him about this he states that he always has some chest pain with exertion which has been chronic and has not changed in nature, character, frequency, duration, or severity. He denies any radiation of the chest discomfort, and he denies any associated symptoms. He specifically denies any associated nausea, vomiting, diaphoresis, or dyspnea. When I asked him about his symptoms leading up to stent deployment in 2010, he does not recall what he was feeling at that time. His initial troponin I was 43.9 with a follow-up value of 42.3 pg/mL. His EKG showed rate controlled atrial fibrillation with her right bundle branch block, possible lateral ST abnormality. Patient is currently lying in his bed in room [facility], and he offers no complaints. He denies any chest pain, heaviness, tightness, pressure, or angina pectoris at the present time. He does have some left facial and ear pain related to his infection. He denies any back, shoulder, or arm pain. He denies any shortness a breath, unusual dyspnea exertion, recent changes in his exertional tolerance, orthopnea, or PND. He further denies any palpitations or sensation that his heart is racing with his atrial fibrillation. He denies any syncope or near-syncope. He has not had any neurologic symptoms suggestive of stroke or mini stroke. I suspect that his elevated troponin I level high related to demand ischemia in a patient with known CAD with chronic stable angina pectoris. This does not appear to be an acute coronary syndrome. Recommend the followin. Consider starting Aspirin 81 mg daily. 2. Since he developed hives with a statin in the past, strongly consider starting a PCSK9 inhibitor. 3. Continue Lisinopril 20 mg daily. 4. Continue Diltiazem CD 180 mg daily. 5. Convert from topical nitrates to oral Isosorbide Mononitrate ER 30 mg daily to lessen his chronic stable angina pectoris. (5) Afib: Permanent Atrial Fibrillation -- he is rate controlled and chronically anticoagulated. His [id number] is 5. 1. Continue Diltiazem CD 180 mg daily. 2. Continue Eliquis 5 mg b.i.d.. (6) Current use of group home anticoagulation: (7) Hypertension: -- Continue antihypertensive regimen as outlined above. -- Low sodium diet. -- Increase aerobic activities as tolerated. History of Present Illness Reason for Consultation: -- Elevated High Sensitivity Troponin I. -- CAD s/p LAD Bare Metal Stent 12/2010. -- Permanent Atrial Fibrillation. Requesting Physician: Carter Monson DO Attending Physician: Robert Tovar MD History of Present Illness Mr. Poon is a 68 year old male with a history of Hypertension, Dyslipidemia, Type 2 Diabetes Mellitus, Permanent Atrial Fibrillation, Anxiety, Depression, JUNIOR, Asthma, and CAD s/p LAD BMS 12/2010 with Chronic Stable Angina Pectoris who was admitted yesterday with Left Otitis Externa/Cellulitis of his face and neck. He describes a worsening left ear infection, with increasing redness, swelling and pain of the external ear, causing some muffling of his sounds on that side, and infection extending down his neck. Patient also notes intermittent precordial chest pain over the past 2 weeks lasting a few minutes at a time -- but when I ask him about this he states that he always has some chest pain with exertion which has been chronic and has not changed in nature, character, frequency, duration, or severity. He denies any radiation of the chest discom fort, and he denies any associated symptoms. He specifically denies any associated nausea, vomiting, diaphoresis, or dyspnea. When I asked him about his symptoms leading up to stent deployment in 2010, he does not recall what he was feeling at that time. His initial troponin I was 43.9 with a follow-up value of 42.3 pg/mL. His EKG showed rate controlled atrial fibrillation with her right bundle branch block, possible lateral ST abnormality. Patient is currently lying in his bed in room 456-1, and he offers no complaints. He denies any chest pain, heaviness, tightness, pressure, or angina pectoris at the present time. He does have some left facial and ear pain related to his infection. He denies any back, shoulder, or arm pain. He denies any shortness a breath, unusual dyspnea exertion, recent changes in his exertional tolerance, orthopnea, or PND. He further denies any palpitations or sensation that his heart is racing with his atrial fibrillation. He denies any syncope or near-syncope. He has not had any neurologic symptoms suggestive of stroke or mini stroke. Patient is intolerant of statins, he developed hives with Crestor in the past. Intolerant of beta-blockers which caused confusion and agitation. Patient is chronically anticoagulated with Eliquis. He has not had any bleeding complications. Allergies Allergy/AdvReac Type Severity Reaction Status Date / Time rosuvastatin [From Crestor] Allergy Intermediate Hives Verified 11/19/23 01:16 Beta-Blockers AdvReac Intermediate Confusion/A Verified 11/19/23 01:16 (Beta-Adrenergic Bloc GITATION ? ABX Allergy Unknown HAPPENED Uncoded 11/19/23 01:16 34 YEARS AGO Home Medications Medication Instructions Recorded Confirmed Type apixaban 5 mg tablet (Eliquis) 5 mg PO BID 07/21/23 11/19/23 History potassium chloride 10 mEq 10 meq PO DAILY #90 caps 07/30/23 11/19/23 Rx capsule,extended release lisinopril 20 mg tablet 20 mg PO DAILY #90 tabs 08/13/23 11/19/23 Rx diltiazem HCl 180 mg 180 mg PO DAILY #90 caps 10/02/23 11/19/23 Rx capsule,extended release 24 hr cephalexin 500 mg capsule 500 mg PO TID #21 caps 11/17/23 11/19/23 Rx empagliflozin 10 mg tablet 10 mg PO DAILY #30 tabs 11/17/23 11/19/23 Rx (Jardiance) paroxetine HCl 30 mg tablet 30 mg PO DAILY #30 tabs 11/17/23 11/19/23 Rx furosemide 40 mg tablet 40 mg PO DAILY edema 11/19/23 11/19/23 History Patient History Medical History History of congestive heart disease IDT (imperfectly descended testis) Surgical History S/P cataract surgery Stented coronary artery 2x Family History Mother Diabetes Heart disease Myocardial infarction Grandfather (Maternal) Diabetes Grandfather (Paternal) Colon cancer Suicide Denies family history of Ovarian cancer Prostate cancer Breast cancer Colorectal cancer Social History Smoking Status: Never smoker Tobacco Type: Cigarettes Age Started Using Tobacco: 17; Age Quit Using Tobacco: 19; Second Hand Exposure: No; Do You Dip or Chew Tobacco: No; Tobacco Cessation Education Requested by Patient: No Hx Alcohol Use: No Hx Substance Use: No Preferred Language: Yi Communication Ability: Effective Visual Impairment: No Limitations Hearing Ability: Normal Pure Pak Machine Operator Required: No Beliefs That Will Affect Care: None marital status: Current Living Situation: Spouse Current Living Situation Comment: lives w/ spouse current occupational status: retired Other Information That Helps Us Care for You: No Feels Safe at Home: Yes Safety Concerns: Feels Safe At This Time Childhood Exposure to Second-Hand Smoke: No Diet: regular caffeine: Yes during the past year weight has: decreased > 10 lbs Dental Care, Regularly: No Physical Activity Frequency: Does not Exercise Seatbelt Use: never Sunscreen Use: No Assistive Devices: Cane Review of Systems Review of Systems: --10 point ROS completed and is negative with the exception of what is mentioned in the HPI. Physical Exam Physical Exam: GENERAL: Patient in no acute distress. HEENT: Head is atraumatic, normocephalic. EOM's intact. Facies symmetric. No perioral cyanosis. Left pinna and tragus are very edematous and erythematous. NECK: No JVD. JVP is not elevated. Carotid upstrokes are + 2 bilaterally without bruits. CHEST/LUNGS: Clear to auscultation throughout all lung casper. No wheezes, rales, or crackles. CVS: S1 and S2 are irregularly irregular at 84 bpm. No murmurs, gallops, or rubs. PMI is nonpalpable. No lifts, heaves, or thrills. No abdominal aortic or renal bruits. ABDOMINAL EXAM: Bowel sounds are present. EXTREMITIES: No clubbing or cyanosis. No edema. Intact radial pulses bilaterally. NEUROLOGIC EXAM: Patient is awake, alert, and oriented. Pleasant and cooperative. Answers questions appropriately. Speech is clear. Results & Data Vital Signs (Past 12 Hours) Vital Signs Temp Pulse Pulse Resp BP BP BP 11/19/23 07:57 36.9 C 68 16 129/74 11/19/23 07:45 71 11/19/23 03:06 84 11/19/23 03:00 36.8 C 84 20 148/74 H 11/19/23 02:36 76 11/19/23 02:30 85 17 112/70 11/19/23 02:24 132/73 11/19/23 01:46 162/90 H 11/19/23 01:30 91 H 24 150/94 H 11/19/23 01:00 84 23 11/19/23 01:00 151/77 H 11/19/23 01:00 151/77 H 11/19/23 01:00 151/77 H 11/19/23 00:54 82 34 H 11/19/23 00:45 158/73 H 11/19/23 00:42 83 34 H 11/19/23 00:42 84 34 H 11/19/23 00:39 96 H 32 H 11/19/23 00:30 140/71 11/19/23 00:17 149/78 H 11/19/23 00:17 149/78 H 11/19/23 00:12 90 29 H 11/19/23 00:00 92 H 35 H 11/18/23 23:33 93 H 33 H 11/18/23 23:30 143/79 H 11/18/23 23:30 143/79 H 11/18/23 23:30 143/79 H 11/18/23 23:30 143/79 H 11/18/23 23:15 88 34 H 11/18/23 23:15 164/91 H 11/18/23 23:15 164/91 H 11/18/23 23:06 89 11/18/23 22:51 92 H 26 H 11/18/23 22:49 98 H 21 159/82 H 11/18/23 22:48 159/82 H 11/18/23 22:48 159/82 H 11/18/23 22:45 94 H 11/18/23 22:42 92 H 31 H 157/76 H 11/18/23 22:21 37.4 C 109 H 18 163/88 H Pulse Ox O2 Del Method 11/19/23 07:57 97 Room Air 11/19/23 07:45 11/19/23 03:06 11/19/23 03:00 96 Room Air 11/19/23 02:36 11/19/23 02:30 90 11/19/23 02:24 11/19/23 01:46 11/19/23 01:30 92 11/19/23 01:00 95 11/19/23 01:00 11/19/23 01:00 11/19/23 01:00 11/19/23 00:54 94 11/19/23 00:45 11/19/23 00:42 94 11/19/23 00:42 95 Room Air 11/19/23 00:39 95 11/19/23 00:30 11/19/23 00:17 11/19/23 00:17 11/19/23 00:12 96 11/19/23 00:00 94 11/18/23 23:33 96 11/18/23 23:30 11/18/23 23:30 11/18/23 23:30 11/18/23 23:30 11/18/23 23:15 93 11/18/23 23:15 11/18/23 23:15 11/18/23 23:06 92 11/18/23 22:51 95 11/18/23 22:49 97 11/18/23 22:48 11/18/23 22:48 11/18/23 22:45 11/18/23 22:42 92 Room Air 11/18/23 22:21 96 Room Air Laboratory Results Laboratory Results - last 24 hr 11/18/23 11/19/23 11/19/23 22:36 00:00 00:32 WBC 12.03 H RBC 3.91 L Hgb 12.6 L Hct 36.5 L MCV 93.4 MCH 32.2 MCHC 34.5 RDW Std Deviation 44.7 RDW Coeff of Aayush 13.1 Plt Count 209 MPV 11.6 Immature Gran % (Auto) 0.4 Neut % (Auto) 78.2 Lymph % (Auto) 16.1 [place] % (Auto) 5.0 Eos % (Auto) 0.1 Baso % (Auto) 0.2 Neut # (Auto) 9.40 H Lymph # (Auto) 1.94 Frederick # (Auto) 0.60 H Eos # (Auto) 0.01 Baso # (Auto) 0.03 Immature Gran # (Auto) 0.05 Sodium 130 L Potassium 4.2 Chloride 97 L Carbon Dioxide 24 Anion Gap 9 BUN 30 H Creatinine 1.99 H Est Cr Clr Drug Dosing 43.6 Est GFR ( Amer) 38.6 Est GFR (Non-Af Amer) 33.3 BUN/Creatinine Ratio 15.1 Glucose 133 H POC Glucose Estimat Average Glucose 157 Hemoglobin A1c 7.1 H Lactate 1.5 Calcium 9.2 Magnesium 1.9 Total Bilirubin 0.9 Direct Bilirubin 0.1 AST 26 ALT 16 Alkaline Phosphatase 57 Troponin I High Sens 43.9 H Total Protein 8.3 Albumin 3.6 Procalcitonin 4.12 H Urine Color Yellow Urine Appearance Clear Urine pH 5.5 Ur Specific [place] 1.019 Urine Protein 2+ H Urine Glucose (UA) Negative Urine Ketones 1+ H Urine Blood Trace H Urine Nitrite Negative Urine Bilirubin Negative Urine Urobilinogen Negative Ur Leukocyte Esterase Negative Urine WBC (Auto) 0-5 Urine RBC (Auto) 0-2 U Hyaline Cast (Auto) 0-2 U Epithel Cells (Auto) 0-2 Urine Bacteria (Auto) None Seen 11/19/23 11/19/23 11/19/23 02:17 07:27 08:20 WBC RBC Hgb Hct MCV MCH MCHC RDW Std Deviation RDW Coeff of Aayush Plt Count MPV Immature Gran % (Auto) Neut % (Auto) Lymph % (Auto) [place] % (Auto) Eos % (Auto) Baso % (Auto) Neut # (Auto) Lymph # (Auto) [place] # (Auto) Eos # (Auto) Baso # (Auto) Immature Gran # (Auto) Sodium 132 L Potassium 3.6 Chloride 100 Carbon Dioxide 25 Anion Gap 7 BUN 30 H Creatinine 1.87 H Est Cr Clr Drug Dosing 46.9 Est GFR ( Amer) 41.6 Est GFR (Non-Af Amer) 35.9 BUN/Creatinine Ratio 16.0 Glucose 114 H POC Glucose 129 H Estimat Average Glucose Hemoglobin A1c Lactate Calcium 8.5 L Magnesium Total Bilirubin Direct Bilirubin AST ALT Alkaline Phosphatase Troponin I High Sens 42.3 H 36.2 H Total Protein Albumin Procalcitonin Urine Color Urine Appearance Urine pH Ur Specific [place] Urine Protein Urine Glucose (UA) Urine Ketones Urine Blood Urine Nitrite Urine Bilirubin Urine Urobilinogen Ur Leukocyte Esterase Urine WBC (Auto) Urine RBC (Auto) U Hyaline Cast (Auto) U Epithel Cells (Auto) Urine Bacteria (Auto) Diagnostic Findings CXR 11/18/23: FINDINGS: 2 AP, portable, upright chest radiographs are obtained. No prior studies are available for comparison at the time of dictation. The examination is mildly degraded by portable technique and patient rotation. The heart is enlarged noting atherosclerotic calcification of the thoracic aorta. The pulmonary vasculature is not congested. There is mild elevation of right hemidiaphragm. Atelectasis is seen at the lung bases. No airspace consolidation or large pleural effusion is identified. No pneumothorax is seen. The bony thorax is grossly intact. Arthritic change is noted in the shoulders. IMPRESSION: Cardiomegaly with no acute cardiopulmonary abnormality identified. Medications Administered Medication List Apixaban (Apixaban 5 Mg Tablet) 5 mg PO BID [facility] Stop: 12/19/23 08:59 Last Admin: 11/19/23 08:12 Dose: 5 mg Documented By: MARGARITO Diltiazem HCl (Diltiazem Hcl 180 Mg Capcr) 180 mg PO DAILY [facility] Stop: 12/19/23 08:59 Last Admin: 11/19/23 08:12 Dose: 180 mg Documented By: MARGARITO Daptomycin 350 mg/ Syringe 7 mls @ 3.5 mls/min IV Q24H [facility]; Protocol Stop: 11/29/23 01:59 Last Admin: 11/19/23 02:16 Dose: 3.5 mls/min Documented By: ROSAMARIA Sodium Chloride (Nss) 1,000 mls @ 80 mls/hr IV .[id number] [facility] Stop: 11/19/23 14:29 Last Admin: 11/19/23 03:30 Dose: 80 mls/hr Documented By: JEAN MARIE Piperacillin Sod/Tazobactam (Sod 4.5 gm/ Dextrose) 100 mls @ 25 mls/hr IV Q8H [facility]; Protocol Stop: 11/29/23 05:59 Last Admin: 11/19/23 06:09 Dose: 25 mls/hr Documented By: JEAN MARIE Insulin Aspart (Insulin Aspart Per Unit Charge) 0 units SC ACHS [facility] Stop: 12/19/23 07:29 Last Admin: 11/19/23 08:34 Dose: 1 units Documented By: MARGARITO Co-signed By: ALBRET Nitroglycerin (Nitroglycerin 2% Ointment 30gm Tube) 1 inch EXT Q6H [facility] Stop: 12/19/23 01:59 Last Admin: 11/19/23 08:35 Dose: 1 inch Documented By: Admin: 11/19/23 02:15 Dose: 1 inch Documented By: ROSAMARIA Paroxetine HCl (Paroxetine Hcl 20 Mg Tab) 30 mg PO DAILY [facility] Stop: 12/19/23 08:59 Last Admin: 11/19/23 08:12 Dose: 30 mg Documented By: MARGARITO Discontinued Medications Apixaban (Apixaban 5 Mg Tablet) 5 mg PO NOW STA Stop: 11/19/23 01:34 Last Admin: 11/19/23 02:15 Dose: 5 mg Documented By: ROSAMARIA Aspirin (Aspirin 81 Mg Ectab) 81 mg PO NOW STA Stop: 11/19/23 01:51 Last Admin: 11/19/23 02:15 Dose: 81 mg Documented By: ROSAMARIA Sodium Chloride (Nss) 1,000 mls @ 999 mls/hr IV .Q1H1M [facility] Stop: 11/19/23 00:45 Last Infusion: 11/19/23 01:58 Dose: Infused Documented By: Admin: 11/19/23 00:16 Dose: 999 mls/hr Documented By: MAYNOR Piperacillin Sod/Tazobactam Sod (Zosyn) 4.5 gm in 100 mls @ 200 mls/hr IV NOW ONE Stop: 11/19/23 00:09 Last Infusion: 11/19/23 01:12 Dose: Infused Documented By: Admin: 11/19/23 00:26 Dose: 200 mls/hr Documented By: MAYNOR PG Care Time/CCT Total # of Minutes Spent Total Time Spent with Patient: Total time spent is greater than 50% in coordination of care (as documented) at patient's floor/unit and/or counseling patient:48 Coding [place] [address] INT INP/OBS CARE 55MIN Patient Type Established History Comprehensive Exam Comprehensive Medical Decision Making Moderate Complexity Diagnoses Infection of ear, external, left H60.392 Cellulitis of face L03.211 Elevated troponin I level R79.89 Coronary artery disease of [place] artery of [place] heart with stable angina pectoris I25.118 Coronary Disease-Associated Artery/Lesion type: [place] artery [place] vs. transplanted heart: [place] heart Associated angina: with stable angina Afib I48.11 Atrial fibrillation type: longstanding persistent Current use of group home anticoagulation Z79.01 Primary hypertension I10 Hypertension type: primary hypertension Time Spent (min) 62 (4) CAD (coronary artery disease) Coronary Disease-Associated Artery/Lesion type: [place] artery [place] vs. transplanted heart: [place] heart Associated angina: with stable angina Qualified Code(s): I25.118 - Atherosclerotic heart disease of [place] coronary artery with other forms of angina pectoris (5) Afib Atrial fibrillation type: longstanding persistent Qualified Code(s): I48.11 - Longstanding persistent atrial fibrillation (7) Hypertension Hypertension type: primary hypertension Qualified Code(s): I10 - Essential (primary) hypertension
[2023-11-19] MEDS: ACETAMINOPHEN 325 MG TAB PO PRN (10:18)
--- NOTE | 2023-11-19 11:27 | Electrocardiogram Report ---
Test Reason : Blood Pressure : / mmHG Vent. Rate : 087 BPM Atrial Rate : 000 BPM P-R Int : 000 ms QRS Dur : 138 ms QT Int : 382 ms P-R-T Axes : 000 052 046 degrees QTc Int : 459 ms Atrial fibrillation Right bundle branch block Abnormal ECG When compared with ECG of 21-NOV-2022 14:46, (unconfirmed) Right bundle branch block is now Present Confirmed by Robert Tovar ([id number]) on 11/19/2023 11:26:56 AM Referred By: REFERRED SELF Confirmed By:Robert Tovar
--- NOTE | 2023-11-19 11:29 | Electrocardiogram Report ---
Test Reason : Blood Pressure : / mmHG Vent. Rate : 069 BPM Atrial Rate : 048 BPM P-R Int : 000 ms QRS Dur : 120 ms QT Int : 466 ms P-R-T Axes : 000 058 090 degrees QTc Int : 499 ms Poor data quality, interpretation may be adversely affected Atrial fibrillation Right bundle branch block Abnormal ECG When compared with ECG of 19-NOV-2023 00:10, (unconfirmed) QRS duration has decreased Nonspecific T wave abnormality no longer evident in Anterior leads Nonspecific T wave abnormality now evident in Lateral leads Confirmed by Robert Tovar ([id number]) on 11/19/2023 11:28:40 AM Referred By: REFERRED SELF Confirmed By:Robert Tovar
[2023-11-19] MEDS: HYDROmorphone INJ 0.5 MG/0.5 ML SYR IV PRN (11:40)
--- NOTE | 2023-11-19 14:18 | XCELERA ---
[id number]
[2023-11-19] MEDS: LACTATED RINGER'S 1,000 ML IV SCH (14:50)
[2023-11-19] MEDS: ASPIRIN 81 MG ECTAB PO SCH (14:51)
--- NOTE | 2023-11-19 14:53 | CT Scan Report ---
CT soft tissue neck wo con CLINICAL HISTORY: Infection of left external ear, face and neck Technique: Axial CT images of the soft tissues of the neck were obtained following intravenous admini stration of 100 cc of Omnipaque 300. Automated dose lowering techniques and/or adjustment according t o patient size were utilized for this exam. Comparison: None available at the time of this dictation. Findings: The oropharynx, hypopharynx, larynx, and trachea are patent. Subcentimeter lymph nodes are seen. The parotid glands, submandibular glands, and thyroid gland are unremarkable. Extensive soft tissue stra nding is seen about the left outer ear with regional lymph nodes. No drainable fluid collection. Imaged portions of the brain parenchyma are unremarkable. The paranasal sinuses and mastoid air cell s are normal in appearance. Impression: Fat stranding is seen about the left ear without drainable fluid collection. Reactive subcentimeter l ymph nodes are seen. ACT 112: Negative or not required by law. Electronically signed by: Luciano Elizondo M.D. 11/19/2023 2:51 PM
[2023-11-19] MEDS: METOPROLOL SUCC 50MG EXT REL TAB PO SCH (17:12)
--- NOTE | 2023-11-19 17:19 | Billing Data ---
Date of Service November 19, 2023 Coding Level of Care Code 94904 SUB INP/OBS CARE MIN
[2023-11-20 05:23] LABS: Albumin Level 3.3 gm/dl (3.4-5.0); BUN Creatinine Ratio 17.5 (10-20); Calcium 8.8 mg/dl (8.6-10.3); Creatinine Clr Calc Pharmacy 47.7 ml/min; Est GFR (African American) 42.7 ml/min; Est GFR (Non-African American) 36.8 ml/min; Phosphorus 3.2 mg/dl (2.5-4.9); Potassium 3.7 mmol/L (3.5-5.1)
[2023-11-20 05:26] LABS: Basophils # (auto) 0.03 K/uL (0.00-0.20); Basophils % (auto) 0.5 %; Eosinophils # (auto) 0.18 K/uL (0.00-0.50); Hematocrit (blood only) 33.2 % (42.0-52.0); Hemoglobin 11.5 g/dl (14.0-18.0); Immature Granulocytes # (auto) 0.03 K/uL (0.01-0.20); Immature Granulocytes % (auto) 0.5 %; Lymphocytes # (auto) 2.02 K/uL (1.20-3.40); Lymphocytes % (auto) 33.8 %; Mean Corpuscular Hemoglobin 32.4 pg (25.0-34.0); Mean Corpuscular Hgb Conc 34.6 g/dL (32.0-36.0); Mean Corpuscular Volume 93.5 fL (80.0-100.0); Monocytes # (auto) 0.56 K/uL (0.11-0.59); Monocytes % (auto) 9.4 %; Neutrophils # (auto) 3.16 K/uL (1.40-6.50); Neutrophils % (auto) 52.8 %; Platelet Count 192 K/uL (130-400); RDW Coefficient of Variation 12.8 % (11.5-14.5); RDW Standard Deviation 44.1 fL (36.4-46.3); Red Blood Count 3.55 M/uL (4.70-6.10); White Blood Count 5.98 K/ul (4.8-10.8)
[2023-11-20] MEDS: ISOSORBIDE MONO EXTENDED REL 30 MG TABCR PO SCH (08:01)
--- NOTE | 2023-11-20 08:20 | Hospitalist Progress Note ---
Date of Service November 20, 2023 Assessment & Plan (1) Cellulitis of face: (2) Otitis externa: (3) Cellulitis of neck: (4) Infection of ear, external, left: (5) Acute kidney injury: (6) Type 2 diabetes mellitus: (7) Hypertension: (8) Anxiety and depression: (9) Current use of group home anticoagulation: Plan Infection of left external ear/otitis externa/cellulitis of face and neck- - Daptomycin 4 mg/kg IV every 24 hours - Zosyn 4.5 g IV every 8 hours - CT of face and neck negative for drainable fluid collection Atrial fibrillation/CAD/hypertension- - The patient will be admitted to telemetry for serial cardiac enzymes, serial EKG's, cardiac rhythm monitoring and a 2-D echocardiogram with Dopplers. - Last echocardiogram on 12/26/2021 with ejection fraction 57%. Repeat echo with normal EF. - Continue apixaban 5 mg BID. - Initial troponin 43.9, with follow-up 42.3. EKG with atrial fibrillation at 87, with new right bundle branch block and ST depressions V4 through V6. Cardiology consulted. Not considered to be an acute coronary event at this time. - Start aspirin 81 mg daily. - Hives with statins in the past, PCSK9 inhibitor recommended. - Switch to Diltiazem ER 180 mg tomorrow as patient feeling agitated with the metoprolol today. - Oral Isosorbide Mononitrate ER 30 mg daily to lessen his chronic stable angina pectoris if blood pressure allows. Acute kidney injury- - Creatinine 1.83 today, with base 1.12 - Renal u/s ordered, rule out post renal cause. If negative, order UA and FeNa. - Hold empagliflozin, furosemide and lisinopril - LR at 100 mL/h Diabetes mellitus- - Patient has been on multi medications in the past, including glimepiride, which had been discontinued by his PCP - More recently has been on empagliflozin, hold - Accu-Cheks with NovoLog [facility] Admission and Anticipated Discharge Date Admission Date: November 19, 2023 Supervising Physician Co-Signing Physician Notes I personally examined the patient and verified all [place] points of history and exam, discussed case, and agree with decision making with Dr Anthony Ortiz and Haylee Ko MS4 generally feels about the same as far as his ear. Pain around the side of his head is may be slightly worse. No other new complaints. Vitals noted, in general he is awake and alert pleasant no distress. Left ear continues to appear about the same degree of swollen, but the redness has now faded from a bright red to more of a dull maroonish red. It is still somewhat tender but not exquisitely tender to palpation. He does have an area of redness around his scalp that is may be slightly larger circling around his ear than yesterday, but still no fluctuance. Left sided cervical fullness in the region of his adenopathy, none elsewhere, and while his supraclavicular fossa on the left still feels full, I feel like maybe it is slightly less than yesterday. Still no necrotic areas noted. Left ear cellulitis with sepsis present on admissionwith spread to scalp. Most likely would be resistant gram-positive organisms given that he was on c ephalexin but failed. Given his lack of fevers, given that the redness is now fadingI think things are improving, but there was enough inflammation in a delicate area that is probably going to take a while for him to feel better. Continue to follow into tomorrowbut if he shows ongoing improvement, hopefully home tomorrow on p.o. antibiotics to cover for more resistant pathogens. Trend inflammatory markers for completeness given the delicate situation. AKIfractional excretion of sodium in the ER over the weekend was consistent with prerenal, his improvement with IV fluids is also consistent with prerenal. Given that his rate of improvement really dramatically slowed we checked renal ultrasound to ensure no obstructive uropathythere was none. I do wonder if he has a small degree of ATN and a predominantly prerenal processat any rate his creatinine is in a very safe range. Continue IV fluids into tomorrow, probably home tomorrow on clearly delineated p.o. fluid goals as long as his creatinine is stable or better. coronary disease with anginaseems to be chronicafter further review his troponins are probably more consistent with angina and may be mild demand ischemia rather than a true NSTEMImed management. Tried metoprolol again. Feels like it caused him to be agitatedI discussed that I strongly suspect it was more likely related to being in the hospital environment and the beta- jesus, but we both agreed that it would be reasonable to switch him back to his diltiazem. A-fibmed changes as above. Anticoagulated anticoagulated for DVT prophylaxis otherwise as above Subjective John is feeling agitated this morning. He was restless las evening and unable to sleep. He feels that his ear pain has not improved overnight. No changes in chest pain, shortness of breath. He is voiding normally but less than usual, thinks this is because he is not taking his diuretic. No hesitancy or weak str eam. Review of Systems Review of Systems: see HPI Physical Exam Physical Exam: GENERAL: Patient in no acute distress. HEENT: Head is atraumatic, normocephalic. EOM's intact. Facies symmetric. No perioral cyanosis. Left pinna and tragus are very edematous and erythematous. Red papules at temporal occiptal scalp. NECK: No JVD. JVP is not elevated. Carotid upstrokes are + 2 bilaterally without bruits. CHEST/LUNGS: Clear to auscultation throughout all lung casper. No wheezes, rales, or crackles. CVS: S1 and S2 are irregularly irregular at 66 bpm. No murmurs, gallops, or rubs. PMI is nonpalpable. No lifts, heaves, or thrills. No abdominal aortic or renal bruits. No CVA tenderness. ABDOMINAL EXAM: Bowel sounds are present. EXTREMITIES: No clubbing or cyanosis. No edema. Intact radial pulses bilaterally. NEUROLOGIC EXAM: Patient is awake, alert, and oriented. Pleasant and cooperative. Answers questions appropriately. Speech is clear. Results & Data Results & Data Vital Signs (Past 12 Hours) Vital Signs Temp Pulse Pulse Resp BP BP Pulse Ox 11/20/23 07:20 36.6 C 66 18 163/85 H 97 11/20/23 07:00 64 11/20/23 03:21 36.6 C 67 20 154/80 H 98 11/19/23 22:56 36.9 C 53 L 16 156/80 H 96 O2 Del Method 11/20/23 07:20 Room Air 11/20/23 07:00 11/20/23 03:21 Room Air 11/19/23 22:56 Room Air Resident Activity Tracking Resident Involvement: Resident Care Provided Care Provided: Adult Hospital Medicine Resident Supervision Co-Signing Physician Notes Patient seen and examined with Malka Romeo MS4. Agree with documented findings as noted with any exception noted here Cellulitis left ear - CT head with no abscess. Not improving, not worsening. Will continue Broad spectrum cover for now. JENARO- CR. 1.82 today. Pre renal, Will continue gentle IV Lactate ringer 100 ml/hr. Renal u/s ordered, rule out post renal causes. UA and FeNA, BMP am. Avoid nephrotoxic drugs Chest pain/Chronic Angina / CAD/ HTN/ Humphreys fibrillation - No acute coronary syndrome. Troponin decreasing in trend. Cardiology consulted, aprec recommendations. Imdur added for tomorrow am. holding lisinopril now due to JENARO, will restart when JENARO resolved. 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
[2023-11-20] MEDS ORDERED: ISOSORBIDE MONO EXTENDED REL 30 MG TABCR PO SCH (09:00)
--- NOTE | 2023-11-20 09:34 | Electrocardiogram Report ---
Test Reason : Blood Pressure : / mmHG Vent. Rate : 063 BPM Atrial Rate : 026 BPM P-R Int : 000 ms QRS Dur : 088 ms QT Int : 478 ms P-R-T Axes : 000 036 090 degrees QTc Int : 489 ms Atrial fibrillation Incomplete right bundle branch block Nonspecific ST abnormality Prolonged QT Abnormal ECG When compared with ECG of 19-NOV-2023 06:12, No significant change Confirmed by Robert Tovar ([id number]) on 11/20/2023 9:34:36 AM Referred By: REFERRED SELF Confirmed By:Robert Tovar
--- NOTE | 2023-11-20 13:21 | Ultrasound Report ---
US renal/blad retro comp CLINICAL HISTORY: ARF TECHNIQUE: Multiple sonographic real-time images of the kidneys and bladder were obtained. COMPARISON: None available at the time of this dictation. FINDINGS: The right kidney measures 11.7 cm in length, and the left kidney measures 12.5 cm in length. The right kidney is normal in size, contour, cortical thickness, and echogenicity. No hydronephrosis is identified. No renal lesion is identified. The left kidney is normal in size, contour, cortical thickness and echogenicity. No hydronephrosis i s identified. No renal lesion is identified. The bladder is partially distended. No large intraluminal mass is seen. IMPRESSION: Unremarkable examination and in particular no evidence of hydronephrosis. ACT 112: Negative or not required by law. Electronically signed by: Luciano Elizondo M.D. 11/20/2023 1:20 PM
--- NOTE | 2023-11-20 19:19 | Billing Data ---
Date of Service November 20, 2023 Coding Level of Care Code 48764 SUB INP/OBS CARE MIN
--- NOTE | 2023-11-20 19:19 | Billing Data ---
Date of Service November 20, 2023 Coding Level of Care Code 04292 SUB INP/OBS CARE MIN
[2023-11-21] MEDS ORDERED: dilTIAZem HCL 180 MG CAPCR PO SCH (09:00)
--- NOTE | 2023-11-21 18:49 | Billing Data ---
Date of Service November 21, 2023 Coding Level of Care Code 21480 IN/OBS DISCH 30 MIN/LESS
[2023-11-21 19:02] LABS: Albumin Globulin Ratio 0.8 (0.9-2); Albumin Level 3.3 gm/dl (3.4-5.0); BUN Creatinine Ratio 18.6 (10-20); Bilirubin,Total 0.9 mg/dl (0.2-1.0); Calcium 8.9 mg/dl (8.6-10.3); Creatinine Clr Calc Pharmacy 47.7 ml/min; Est GFR (African American) 42.7 ml/min; Est GFR (Non-African American) 36.8 ml/min; Globulin 4.1 gm/dl (2.5-4.0); Potassium 3.7 mmol/L (3.5-5.1); Total Protein 7.4 gm/dl (6.0-8.3)
[2023-11-21 21:07] LABS: Basophils # (auto) 0.05 K/uL (0.00-0.20); Basophils % (auto) 0.7 %; Eosinophils # (auto) 0.19 K/uL (0.00-0.50); Eosinophils % (auto) 2.8 %; Hemoglobin 11.5 g/dl (14.0-18.0); Immature Granulocytes # (auto) 0.14 K/uL (0.01-0.20); Immature Granulocytes % (auto) 2.1 %; Lymphocytes % (auto) 29.4 %; Mean Corpuscular Hemoglobin 32.3 pg (25.0-34.0); Mean Corpuscular Hgb Conc 34.8 g/dL (32.0-36.0); Mean Corpuscular Volume 92.7 fL (80.0-100.0); Mean Platelet Volume 11.4 fL (9.4-12.4); Monocytes # (auto) 0.62 K/uL (0.11-0.59); Monocytes % (auto) 9.1 %; Neutrophils % (auto) 55.9 %; Platelet Count 203 K/uL (130-400); RDW Coefficient of Variation 13.1 % (11.5-14.5); RDW Standard Deviation 44.6 fL (36.4-46.3); Red Blood Count 3.56 M/uL (4.70-6.10)
== END 2023-11-21 15:35 | disposition home or self-care (01) | DRG 872 ==
LOC: ED 22:19 → SUATTDRO 11-19 02:00 → 4W 11-19 02:00